=== PATIENT | female | born 2000 | race Caucasian/White ===

== ENCOUNTER 2018-07-17 18:08 | Emergency (ER) | payer MEDICAID ==
[~2018-07-17] VITALS: Ht 167.6 cm; Wt 64.0 kg
[2018-07-17 18:13] VITALS: BP 116/64
[2018-07-17] MEDS ORDERED: LIDOCAINE-MPF 2%, 2ML ONE (18:26)
[2018-07-17] MEDS ORDERED: AZITHROMYCIN 250 MG TABLET ONE (18:27)
[2018-07-17] MEDS ORDERED: CEFTRIAXONE 250 MG ONE (18:27)
[2018-07-17] MEDS ORDERED: ACETAMINOPHEN 500 MG TABLET ONE (18:27)
[2018-07-17] MEDS ORDERED: ACETAMINOPHEN 500 MG TABLET PO ONE (18:30)
[2018-07-17] MEDS ORDERED: CEFTRIAXONE 1,000 MG IM ONE (18:30)
[2018-07-18] MEDS ORDERED: AZITHROMYCIN 500 MG TABLET PO SCH (09:00)
== END 2018-07-17 19:17 | disposition home or self-care (01) ==
LOC: ED 18:44
DX: A74.9 Chlamydial infection, unspecified (principal); A54.9 Gonococcal infection, unspecified; F17.200 Nicotine dependence, unspecified, uncomplicated
CPT/HCPCS: 96372; 99283; J0696

== ENCOUNTER 2018-08-31 16:37 | Emergency (ER) | payer MEDICAID ==
[~2018-08-31] VITALS: Ht 167.6 cm; Wt 67.0 kg
[2018-08-31 17:23] LABS: BASOPHILS # (AUTO) 0.01 x10^3/uL (0-0.3); BASOPHILS % (AUTO) 0 % (0-1); EOSINOPHILS # (AUTO) 0.05 x10^3/uL (0-0.8); EOSINOPHILS % (AUTO) 1 % (1-7); LYMPHOCYTES # (AUTO) 1.82 x10^3/uL (1-6.1); LYMPHOCYTES % (AUTO) 37 % (22-44); MD NO; MEAN CORPUSCULAR HEMOGLOBIN 33.1 pg (27.0-34.8); MEAN CORPUSCULAR HGB CONC 34.6 g/dL (32.4-35.8); MEAN CORPUSCULAR VOLUME 95.7 fL (80-100); MEAN PLATELET VOLUME 7.9 fL (7.4-10.4); MONOCYTES # (AUTO) 0.56 x10^3/uL (0-1.4); MONOCYTES % (AUTO) 11 % (2-9); NEUTROPHILS # (AUTO) 2.47 x10^3/uL (1.8-8.0); NEUTROPHILS % (AUTO) 50 % (42-75); PLATELET COUNT 250 x10^3/uL (130-400); RED BLOOD COUNT 4.46 x10^6/uL (3.82-5.3); RED CELL DISTRIBUTION WIDTH 13.9 % (9.6-15.2)
[2018-08-31 17:29] LABS: MICROSCOPIC NOT IND
[2018-08-31 17:31] LABS: CULTURE INDICATED? NO
[2018-08-31 17:33] LABS: ALBUMIN 3.9 g/dL (3.4-5.0); ANION GAP 9 mmol/L (5-15); CALCIUM 8.4 mg/dL (8.5-10.1); CHLORIDE 107 mmol/L (98-107)
[2018-08-31 17:44] LABS: ALANINE AMINOTRANSFERASE 21 U/L (12-78); ALKALINE PHOSPHATASE 96 U/L (45-117); BILIRUBIN,TOTAL 1.7 mg/dL (0.2-1.0); CREATININE 0.66 mg/dL (0.55-1.02); TOTAL PROTEIN 7.4 g/dL (6.4-8.2)
[2018-08-31] MEDS ORDERED: TRAZADONE (19:30)
[2018-08-31 20:03] VITALS: BP 106/74
== END 2018-08-31 20:05 | disposition home or self-care (01) ==
LOC: ED 16:48
DX: O26.891 Other specified pregnancy related conditions, first trimester (principal); R10.11 Right upper quadrant pain; R10.31 Right lower quadrant pain; R10.32 Left lower quadrant pain; Z3A.01 Less than 8 weeks gestation of pregnancy
CPT/HCPCS: 36415; 76700; 76801; 80053; 81003; 83690; 84702; 85025; 99285

== ENCOUNTER 2018-09-03 13:33 | Emergency (ER) | payer MEDICAID ==
[~2018-09-03] VITALS: Ht 167.6 cm; Wt 64.5 kg
[~2018-09-03 13:33] MED LIST: TRAZADONE
[2018-09-03 15:56] VITALS: BP 112/68
== END 2018-09-03 15:59 | disposition home or self-care (01) ==
LOC: ED 15:30
DX: O26.891 Other specified pregnancy related conditions, first trimester (principal); R10.2 Pelvic and perineal pain; Z87.891 Personal history of nicotine dependence; Z3A.01 Less than 8 weeks gestation of pregnancy
CPT/HCPCS: 36415; 84702; 99283

== ENCOUNTER 2019-03-22 16:40 | Emergency (ER) | payer MEDICAID ==
[~2019-03-22] VITALS: Ht 167.6 cm; Wt 68.3 kg
[2019-03-22 17:35] LABS: BASOPHILS # (AUTO) 0.02 x10^3/uL (0-0.3); BASOPHILS % (AUTO) 1 % (0-1); EOSINOPHILS # (AUTO) 0.01 x10^3/uL (0-0.8); EOSINOPHILS % (AUTO) 0 % (1-7); LYMPHOCYTES # (AUTO) 0.88 x10^3/uL (1-6.1); LYMPHOCYTES % (AUTO) 20 % (22-44); MD NO; MEAN CORPUSCULAR HEMOGLOBIN 32.3 pg (27.0-34.8); MEAN CORPUSCULAR HGB CONC 33.7 g/dL (32.4-35.8); MEAN CORPUSCULAR VOLUME 95.9 fL (80-100); MEAN PLATELET VOLUME 7.6 fL (7.4-10.4); MONOCYTES # (AUTO) 0.41 x10^3/uL (0-1.4); MONOCYTES % (AUTO) 9 % (2-9); NEUTROPHILS # (AUTO) 3.19 x10^3/uL (1.8-8.0); NEUTROPHILS % (AUTO) 71 % (42-75); PLATELET COUNT 274 x10^3/uL (130-400); RED CELL DISTRIBUTION WIDTH 12.7 % (9.6-15.2)
--- NOTE | 2019-03-22 17:45 | NUR ---
[employer] VICKI NOTIFIED ABOUT PT, STATES SHE'LL BE DOWN TO EVALUATE PT.
[2019-03-22 17:49] LABS: ALBUMIN 4.3 g/dL (3.4-5.0); ANION GAP 16 mmol/L (5-15); CALCIUM 9.2 mg/dL (8.5-10.1); CHLORIDE 105 mmol/L (98-107)
[2019-03-22 17:53] LABS: ALANINE AMINOTRANSFERASE 23 U/L (12-78); ALKALINE PHOSPHATASE 129 U/L (45-117); BILIRUBIN,TOTAL 1.5 mg/dL (0.2-1.0); TOTAL PROTEIN 7.8 g/dL (6.4-8.2)
[2019-03-22] MEDS ORDERED: SODIUM CHLORIDE 0.9% 1,000ML IVBOLUS ONE (18:00)
[2019-03-22] MEDS ORDERED: LORazepam 1MG TABLET PO ONE (18:00)
[2019-03-22] MEDS ORDERED: LORazepam 1MG TABLET ONE (18:34)
--- NOTE | 2019-03-22 18:53 | NUR ---
VICKI HAS BEEN AT BEDSIDE TO GIVE PT & HER MOTHER RESOURCES. AWAITING URINE RESULTS. BEDSIDE REPORT TO RN JULIAN, PT CARE TRANSFERRED AT THIS TIME.
[2019-03-22] MEDS ORDERED: CEFTRIAXONE 250 MG IM ONE (19:00)
[2019-03-22] MEDS ORDERED: AZITHROMYCIN 500 MG TABLET PO ONE (19:00)
[2019-03-22 19:05] LABS: MICROSCOPIC AUTO
[2019-03-22 19:09] LABS: CULTURE INDICATED? NO
[2019-03-22] MEDS ORDERED: AZITHROMYCIN 500 MG TABLET ONE (19:14)
[2019-03-22] MEDS ORDERED: CEFTRIAXONE 250 MG ONE (19:14)
--- NOTE | 2019-03-22 19:20 | NUR ---
PT MEDICATED PER MAR, MONITORS IN PLACE, SIDERAISL UP X2, CALL LIGHT WITHIN REACH
[2019-03-22] MEDS ORDERED: SERT100T PO (19:22)
[2019-03-22] MEDS ORDERED: GABA-827 PO (19:22)
[2019-03-22] MEDS ORDERED: QUET300T5 PO (19:22)
[2019-03-22 19:23] VITALS: BP 127/87
== END 2019-03-22 19:36 | disposition home or self-care (01) ==
LOC: ED 19:30
DX: T74.21XA Adult sexual abuse, confirmed, initial encounter (principal); F41.1 Generalized anxiety disorder; F10.10 Alcohol abuse, uncomplicated; F17.200 Nicotine dependence, unspecified, uncomplicated; Z72.9 Problem related to lifestyle, unspecified
CPT/HCPCS: 36415; 71045; 80053; 81001; 83690; 84703; 85025; 87491; 87591; 93005; 96372; 99284; J0696